=== PATIENT | female | born 1960 | race Caucasian/White ===

== ENCOUNTER → 2017-04-13 | Outpatient (CLI) | payer BC ==
[~2017-04-13] MED LIST: AMLO5TAB PO; ASPIRIN 325MG325 MG PO; COSOPT OP; DYAZIDE CAP (M1 EACH PO; FLONASE 50 MCG16 GM; JANUVIA50 MG PO; LATANOPROST 2.2.5 ML OP; METFORMIN500 MG PO; NEXIUM 24HR20 MG PO; PERCOCET 5/3251 EACH PO; POLY-IRON 150150 MG PO; REGLAN 5MG TABLE5 MG PO; SYNTHROID0.137 MG PO; TOPROL XL 25MG25 MG PO; TUMS 400MG TAB400 MG PO; TYLENOL ES500 MG PO; VYTORIN 10 MG-21 TAB PO
--- NOTE | 2017-04-17 11:19 | RADIOLOGY REPORT PS360 ---
DIG MAMM-SCREEN STEFF W/CAD CAD Screening COMPARISON: Digital mammograms 02/04/2015 and 01/20/2013 INDICATION: There is no personal or family history of breast cancer TECHNIQUE: Standard CC and MLO images were obtained. R2 CAD reviewed. FINDINGS: The breasts are closed primarily of fat. There is a stable benign-appearing nodular density just deep to the nipple the right breast. There is a mole marker on each breast. There are couple of benign-appearing calcination is in each breast. There is no suspicious lesion and no suspicious microcalcifications. IMPRESSION: Stable exam with no suspicious lesion seen recommend yearly follow-up BI-RADS CATEGORY: 2_Benign RECOMMENDED FOLLOWUP: 12M 12 MONTH FOLLOW-UP (A letter has been sent to the patient regarding results of the study.)
== END ==
LOC: RAD 08:30
DX: Z12.31 Encounter for screening mammogram for malignant neoplasm of breast (principal)
CPT/HCPCS: G0202